=== PATIENT | female | born 1980 | race Caucasian/White ===

== ENCOUNTER 2016-05-27 18:02 | Emergency (ER) | payer SELFPAY ==
--- NOTE | 2016-05-27 19:40 | ERRECORD ---
[facility] EMERGENCY RECORD HPI EXTREMITY (19:13 DHAM) CHIEF COMPLAINT: Patient presents for evaluation of swelling, to the left ankle. HISTORIAN: History provided by patient. MECHANISM OF INJURY: Unknown mechanism, Mechanism of injury: left ankle swells in the evenings after work for 2 weeks now. denies calf pain but may have had a little left thigh pain earlier today. LOCATION: Symptoms are localized, most severe in the left ankle. SEVERITY: Current severity of pain rated as 0/10. TIME COURSE: Gradual onset of symptoms, 2, weeks ago, Symptoms are worsening, swelling isn't resolving in the last 2 days. occas notes right ankle swelling as well for "awhile". ASSOCIATED WITH: No associated alcohol use, No associated chills, No associated decreased use, No associated distal injury, No associated distal neuro complaint, No associated erythema, No associated fever, No associated inability to ambulate, No associated inability to bear weight, No associated numbness, No associated tingling, No associated warmth. EXACERBATED BY: Patient's condition exacerbated by standing for long periods. RELIEVED BY: Patient's condition relieved by elevation. ROS (19:15 DHAM) CONSTITUTIONAL: Historian denies chills, denies fever, denies night sweats. CARDIOVASCULAR: Historian denies chest pain, no radiation, Historian denies exercise intolerance, denies syncope, denies palpitations. longstanding heart murmur due to "bicuspid aortic valve". RESPIRATORY: Historian denies cough, denies shortness of breath, denies sputum, denies stridor, denies wheezing. GI: Historian denies abdominal pain, denies nausea, denies vomiting. MUSCULOSKELETAL: Historian denies arthralgias, denies fall, denies injury, denies joint redness, denies joint stiffness, reports joint swelling. left ankle. SKIN: Historian denies pruritis, denies rash, denies skin changes, denies skin lesions. NEUROLOGIC: Historian denies paresthesias, denies sensory changes. ENDOCRINE: Historian denies polydipsia, denies polyuria. HEMO/LYMPHATIC: Historian denies abnormal blood clotting, denies easy bruising, denies gum bleeding. PAST MEDICAL HISTORY MEDICAL HISTORY: Notes: as lsited, Notes: tricuspid valve. (18:14 SFRE) FEMALE SURGICAL HISTORY: as listed, Surgical history of section, Notes: x3, Surgical history of tubal ligation. (18:14 SFRE) &a-1R&a+25V*p+0X*[id number]*c202B*c15G*c2P*p-0X&a-25V&a+1R Name: Sera Arnold : 1980 F35 MedRec: [id number] AcctNum: [id number] Prepared: FriMay 28, 2016 01:14 by Interface Page 1 of 3 pMD [facility] EMERGENCY RECORD PSYCHIATRIC HISTORY: Psychiatric history includes, anxiety, Previous psychiatric history: Pt states she is suppose to be on meds but doesnt want to take med. (18:14 SFRE) SOCIAL HISTORY: Social History includes lives with family, Patient drinks socially, Patient denies drug use, Patient currently uses tobacco, smokes cigarettes, Patient smokes 2 packs per day. (18:14 SFRE) NOTES: HAVE EXAMINED AND AGREE WITH PMHX, SOCIAL HX AND PAST FAMILY HX as noted in nursing docuentation. (18:54 DHAM) KNOWN ALLERGIES No Known Drug Allergies CURRENT MEDICATIONS (18:13 SFRE) None VITAL SIGNS (18:11 SFRE) VITAL SIGNS: BP: 117/78, Pulse: 63, Resp: 18 (Non-Labored), Temp: 98.2 (Tympanic), Pain: 0, O2 sat: 100 on Room Air, Time: 05/27/2016 18:11. PHYSICAL EXAM (19:17 DHAM) CONSTITUTIONAL: Vital signs reviewed, Patient afebrile, Pulse normal, Blood pressure normal, Respiratory rate normal, Patient appears non toxic, Patient appears pain free, Patient alert and oriented to person, place and time. RESPIRATORY CHEST: Respiratory exam included findings of no respiratory distress, Breath sounds clear, No wheezing, No rales, No rhonchi. CARDIOVASCULAR: Cardiovascular exam included findings of heart rate regular rate and rhythm, Heart sounds with, systolic murmur present, grade 2/6, low pitched heard at ULSB. UPPER EXTREMITY: Upper extremity exam normal. LOWER EXTREMITY: Lower extremity exam normal, Lower extremity exam included findings of inspection normal, Range of motion normal, Motor strength normal, Sensation intact, Posterior tibial pulse normal, Pedal pulse normal, Libertad's negative, distal pulses intact, capillary refill less than 2 seconds, distal motor intact, distal sensory intact, right calf measures 38cm and left calf measures 36.5 cm. straight leg raise is neg also. normal toe raise and heel raise. normal dtrs. NEURO: Blair coma scale 15, Neuro exam findings include patient oriented to person, place and time, Speech normal, Gait normal, Memory normal, Cranial nerves intact, Deep tendon reflexes normal, no focal motor deficits, no focal sensory deficits. SKIN: Skin exam included findings of skin warm, dry, and normal in color, no rash. LYMPHATIC: Lymphatic exam normal. &a-1R&a+25V*p+0X*q8225L*c202B*c15G*c2P*p-0X&a-25V&a+1R Name: Sera Arnold : 1980 5 MedRec: [id number] AcctNum: [id number] Prepared: FriMay 28, 2016 01:14 by Interface Page 2 of 3 pMD [facility] EMERGENCY RECORD DOCTOR NOTES (19:19 DAMIÁN) TEXT: Pt may have a bit of venous insufficiency or djd in her left ankle. she has a normal exam tonight. I see no signs of dvt and her wells score for DVT is 0 as well. see dci. PROBLEM LIST No recorded problems DIAGNOSIS (19:21 MANUELM) FINAL: PRIMARY: venous insufficiency left leg. PRESCRIPTION No recorded prescriptions DISPOSITION PATIENT: Disposition Type: Discharge, Disposition: *Discharge Home. (19:21 DAMIÁN) Patient left the department. (19:26 TETO) Marroquin: DAMIÁN=MD Abebe, Chele IRENE=Garret, RN, Tri EARLY=CHEN Malhotra, Eva &a-1R&a+25V*p+0X*[id number]*c202B*c15G*c2P*p-0X&a-25V&a+1R Name: Sera Arnold : 1980 F35 MedRec: [id number] AcctNum: [id number] Prepared: FriMay 28, 2016 01:14 by Interface Page 3 of 3 pMD [facility]
--- NOTE | 2016-05-27 19:42 | PICIS ---
[facility] EMERGENCY RECORD TRIAGE (FriMay 27, 2016 18:13 SFRE) TRIAGE NOTES: LEFT LEG AND FOOT SWOLLEN FOR ABOUT 2 WEEKS. (FriMay 27, 2016 18:13 SFRE) PATIENT: NAME: Sera Arnold, AGE: 35, GENDER: female, : Sat 1980, TIME OF GREET: FriMay 27, 2016 18:03, PREFERRED LANGUAGE: Congolese, ETHNICITY: Not or , FALL RISK: NO, ECODE BILLING MAP: [facility], SSN: [id number], Zip Code: [address], KG WEIGHT: 77.11, PHONE: , , , PERSON ID: [id number], PCP: DO Villalobos Nicole. (FriMay 27, 2016 18:13 SFRE) COMPLAINT: LT LEG & FOOT SWOLLEN. (FriMay 27, 2016 18:13 SFRE) ADMISSION: URGENCY: 4 Non Urgent, ADMISSION SOURCE: Home, TRANSPORT: Walk-in, BED: TRIAGE. (FriMay 27, 2016 18:13 SFRE) IMMUNIZATIONS: Flu vaccine not up to date. (18:14 SFRE) SIRS SCORING: Heart Rate 55-109 (0), Temp range 96.8-101.1 (0), respiratory rate 12-24 (0), Mental Status altered: no (0). (18:14 SFRE) TRIAGE SCREENING: Patient denies suicidal ideation, Patient denies presence of domestic violence. (18:14 SFRE) PROVIDERS: TRIAGE NURSE: Eva Malhotra RN. (FriMay 27, 2016 18:13 SFRE) VITAL SIGNS: BP 117/78, Pulse 63, Resp 18, (Non-Labored), Temp 98.2, (Tympanic), Pain 0, O2 Sat 100, on Room Air, Time 05/27/2016 18:11. (18:11 SFRE) PREVIOUS VISIT ALLERGIES: No Known Drug Allergies. (FriMay 27, 2016 18:13 SFRE) No Known Drug Allergies. (18:14 SFRE) KNOWN ALLERGIES No Known Drug Allergies CURRENT MEDICATIONS (18:13 SFRE) None VITAL SIGNS (18:11 SFRE) VITAL SIGNS: BP: 117/78, Pulse: 63, Resp: 18 (Non-Labored), Temp: 98.2 (Tympanic), Pain: 0, O2 sat: 100 on Room Air, Time: 05/27/2016 18:11. NURSING ASSESSMENT: EXTREMITY LOWER (18:19 SFRE) CONSTITUTIONAL: Patient arrives ambulatory, Gait steady, History obtained from patient, Patient appears comfortable, Patient cooperative, Patient alert, Oriented to person, place and time, Skin warm, Skin dry, Skin normal in color, Mucous membranes pink, Mucous membranes moist, Patient is well-groomed, Patient complains of LEFT FOOT AND LEG PAIN. PAIN: to the left lower leg, to the left foot, Patient rates pain as 0 out of 10, REPORTS ONLY HURTS WITH PALPATION AND AMBULATION, Pain exacerbated by nothing, Nothing has been tried to alleviate the pain. &a-1R&a+25V*p+0X*p6980W*c202B*c15G*c2P*p-0X&a-25V&a+1R Name: Sera Arnold : 1980 F35 MedRec: [id number] AcctNum: [id number] Prepared: FriMay 28, 2016 01:14 by Interface Page 1 of 5 pMD [facility] EMERGENCY RECORD LEFT LOWER EXTREMITY: Left lower extremity assessment findings include capillary refill less than 2 seconds, Skin color normal, Skin temperature warm, Distal sensation intact, Muscle tone normal, dorsalis pedis pulse is +4, Inspection findings include swelling, to MINAMAL SWELLING, Notes: DENIES INJURY. SAFETY: Side rails up, Cart/Stretcher in lowest position, Family at bedside, Call light within reach, Hospital ID band on. NURSING PROCEDURE: DISCHARGE NOTE (19:26 JDEA) DISCHARGE: Patient discharged to home, ambulating without assistance, family driving, accompanied by //partner, Summary of Care printed/ provided, Patient requested and was provided an electronic copy of Discharge Instructions, Transition record given to patient, Discharge instructions given to patient, Simple or moderate discharge teaching performed, Above person(s) verbalized understanding of discharge instructions and follow-up care, Patient treated and evaluated by physician. BELONGINGS: Belongings and valuables with patient at time of discharge include:, Belongings remain with patient. HPI EXTREMITY (19:13 DHAM) CHIEF COMPLAINT: Patient presents for evaluation of swelling, to the left ankle. HISTORIAN: History provided by patient. MECHANISM OF INJURY: Unknown mechanism, Mechanism of injury: left ankle swells in the evenings after work for 2 weeks now. denies calf pain but may have had a little left thigh pain earlier today. LOCATION: Symptoms are localized, most severe in the left ankle. SEVERITY: Current severity of pain rated as 0/10. TIME COURSE: Gradual onset of symptoms, 2, weeks ago, Symptoms are worsening, swelling isn't resolving in the last 2 days. occas notes right ankle swelling as well for "awhile". ASSOCIATED WITH: No associated alcohol use, No associated chills, No associated decreased use, No associated distal injury, No associated distal neuro complaint, No associated erythema, No associated fever, No associated inability to ambulate, No associated inability to bear weight, No associated numbness, No associated tingling, No associated warmth. EXACERBATED BY: Patient's condition exacerbated by standing for long periods. RELIEVED BY: Patient's condition relieved by elevation. ROS (19:15 [facility]) CONSTITUTIONAL: Historian denies chills, denies fever, denies night sweats. CARDIOVASCULAR: Historian denies chest pain, no radiation, Historian denies exercise intolerance, denies syncope, denies palpitations. longstanding heart murmur due to "bicuspid aortic valve". &a-1R&a+25V*p+0X*v0181K*c202B*c15G*c2P*p-0X&a-25V&a+1R Name: Sera Arnold : 1980 F35 MedRec: [id number] AcctNum: [id number] Prepared: FriMay 28, 2016 01:14 by Interface Page 2 of 5 pMD [facility] EMERGENCY RECORD RESPIRATORY: Historian denies cough, denies shortness of breath, denies sputum, denies stridor, denies wheezing. GI: Historian denies abdominal pain, denies nausea, denies vomiting. MUSCULOSKELETAL: Historian denies arthralgias, denies fall, denies injury, denies joint redness, denies joint stiffness, reports joint swelling. left ankle. SKIN: Historian denies pruritis, denies rash, denies skin changes, denies skin lesions. NEUROLOGIC: Historian denies paresthesias, denies sensory changes. ENDOCRINE: Historian denies polydipsia, denies polyuria. HEMO/LYMPHATIC: Historian denies abnormal blood clotting, denies easy bruising, denies gum bleeding. PAST MEDICAL HISTORY MEDICAL HISTORY: Notes: as lsited, Notes: tricuspid valve. (18:14 SFRE) FEMALE SURGICAL HISTORY: as listed, Surgical history of section, Notes: x3, Surgical history of tubal ligation. (18:14 SFRE) PSYCHIATRIC HISTORY: Psychiatric history includes, anxiety, Previous psychiatric history: Pt states she is suppose to be on meds but doesnt want to take med. (18:14 SFRE) SOCIAL HISTORY: Social History includes lives with family, Patient drinks socially, Patient denies drug use, Patient currently uses tobacco, smokes cigarettes, Patient smokes 2 packs per day. (18:14 SFRE) NOTES: HAVE EXAMINED AND AGREE WITH PMHX, SOCIAL HX AND PAST FAMILY HX as noted in nursing docuentation. (18:54 DHAM) PHYSICAL EXAM (19:17 DHAM) CONSTITUTIONAL: Vital signs reviewed, Patient afebrile, Pulse normal, Blood pressure normal, Respiratory rate normal, Patient appears non toxic, Patient appears pain free, Patient alert and oriented to person, place and time. RESPIRATORY CHEST: Respiratory exam included findings of no respiratory distress, Breath sounds clear, No wheezing, No rales, No rhonchi. CARDIOVASCULAR: Cardiovascular exam included findings of heart rate regular rate and rhythm, Heart sounds with, systolic murmur present, grade 2/6, low pitched heard at ULSB. UPPER EXTREMITY: Upper extremity exam normal. LOWER EXTREMITY: Lower extremity exam normal, Lower extremity exam included findings of inspection normal, Range of motion normal, Motor strength normal, Sensation intact, Posterior tibial pulse normal, Pedal pulse normal, Libertad's negative, distal pulses intact, capillary refill less than 2 seconds, distal motor intact, distal sensory intact, right calf measures 38cm and left calf measures &a-1R&a+25V*p+0X*b6322H*c202B*c15G*c2P*p-0X&a-25V&a+1R Name: Catalina Sera Antonella : 1980 F35 MedRec: [id number] AcctNum: [id number] Prepared: FriMay 28, 2016 01:14 by Interface Page 3 of 5 pMD [facility] EMERGENCY RECORD 36.5 cm. straight leg raise is neg also. normal toe raise and heel raise. normal dtrs. NEURO: Blair coma scale 15, Neuro exam findings include patient oriented to person, place and time, Speech normal, Gait normal, Memory normal, Cranial nerves intact, Deep tendon reflexes normal, no focal motor deficits, no focal sensory deficits. SKIN: Skin exam included findings of skin warm, dry, and normal in color, no rash. LYMPHATIC: Lymphatic exam normal. EVENTS TRANSFER: Triage to Emergency Triage. (FriMay 27, 2016 18:13 SFRE) Emergency Triage to Main ED -03. (18:13 SFRE) Removed from Emergency Main ED -03. (19:26 JDEA) O2SAT INTERPRETATION (19:21 DHAM) O2SAT: Single pulse oximetry, Oxygen saturation 100%, on room air, Oxygen saturation interpretation: Normal, No intervention required. DOCTOR NOTES (19:19 DHAM) TEXT: Pt may have a bit of venous insufficiency or djd in her left ankle. she has a normal exam tonight. I see no signs of dvt and her wells score for DVT is 0 as well. see dci. PROBLEM LIST No recorded problems DIAGNOSIS (19:21 DHAM) FINAL: PRIMARY: venous insufficiency left leg. DISPOSITION PATIENT: Disposition Type: Discharge, Disposition: *Discharge Home. (19:21 DHAM) Patient left the department. (19:26 JDEA) INSTRUCTION (19:23 DHAM) DISCHARGE: ANKLE SPRAIN (NO X-RAY). FOLLOWUP: DO Villalobos Nicole, Family Practice, [address] [facility], [facility], [facility] [address], . SPECIAL: Wear below the knee compression socks while at work and on your feet. Stop smoking. See your pcp for further evaluation or return her for any concerns or worsening. PRESCRIPTION No recorded prescriptions &a-1R&a+25V*p+0X*c4229N*c202B*c15G*c2P*p-0X&a-25V&a+1R Name: Sera Arnold : 1980 5 MedRec: [id number] AcctNum: [id number] Prepared: FriMay 28, 2016 01:14 by Interface Page 4 of 5 pMD [facility] EMERGENCY RECORD IMAGING (19:27 TETO) *DISCHARGE INSTRUCTIONS RECEIPT: Image captured from scanner. *SUPPLY CHARGE SHEET: Image captured from scanner. ADMIN (FriMay 28, 2016 01:08 DAMIÁN) DIGITAL SIGNATURE: MD Lomas Darren. Marroquin: DAMIÁN=MD Lomas Darren JDEA=CHEN Combs, Tri EARLY=CHEN Malhotra, Eva &a-1R&a+25V*p+0X*y1158G*c202B*c15G*c2P*p-0X&a-25V&a+1R Name: LayovanceSera : 1980 5 MedRec: [id number] AcctNum: [id number] Prepared: FriMay 28, 2016 01:14 by Interface Page 5 of 5 pMD [facility]TDD
== END 2016-05-27 19:26 | disposition home or self-care (01) ==
LOC: MADERS 18:02
DX: I87.2 Venous insufficiency (chronic) (peripheral) (principal); F41.9 Anxiety disorder, unspecified; F17.210 Nicotine dependence, cigarettes, uncomplicated
CPT/HCPCS: 99283